=== PATIENT | female | born 1970 | race Asian ===

== ENCOUNTER 2018-10-21 03:50 | Emergency (ER) | payer OTHER ==
[~2018-10-21] VITALS: Ht 154.9 cm; Wt 49.9 kg
--- NOTE | 2018-10-21 03:50 | NUR ---
ED Nurse Note: SHANIKA SAHU [id number] C/O FALL 033. ABRASION TO LEFT FOREHEAD NOTED. PT STATES SHE FELL ASLEEP ON THE 3RD STEP OF STAIRS, FELL AND LANDED ON HER HEAD. DENIES LOC. AO4 VSS. REPORTS PAIN 10/10; CRYING.
--- NOTE | 2018-10-21 03:56 | Emergency Room Report ---
History of Present Illness General Chief Complaint: Multiple Trauma/Fall Source: Patient Present Illness HPI Patient presents with complaints of trauma to the left facial area This happened just prior to arrival patient had essentially falling asleep sitting down And after she fell asleep she fell forward hitting her head She had been sitting on the third step of a van Denies any visual changes denies any neck pain denies any focal weakness Pain to the left forehead area is 8 out of 10 Denies any other radiation Allergies: Coded Allergies: No Known Allergies (Unverified , 10/21/18) Patient History Past Medical History: see triage record Pertinent Family History: none Reviewed Nursing Documentation: PMH: Agreed; PSxH: Agreed Nursing Documentation-PMH Past Medical History: No Stated History Review of Systems All Other Systems: negative except mentioned in HPI Physical Exam Vital Signs Date Time Temp Pulse Resp B/P (MAP) Pulse Ox O2 Delivery O2 Flow Rate FiO2 10/21/18 03:40 97.9 68 18 144/80 98 Room Air Sp02 EP Interpretation: reviewed, normal General Appearance: mild distress - Tearful Head: other - Abrasions and 2 x 2 centimeter hematoma left forehead Eyes: bilateral eye PERRL ENT: normal pharynx Neck: full range of motion, supple Respiratory: lungs clear, no retraction, no accessory muscle use Cardiovascular #1: regular rate, rhythm Gastrointestinal: non tender, soft Genitourinary: no CVA tenderness Musculoskeletal: normal inspection Neurologic: alert, oriented x3, responsive Skin: other - Significant abrasforehead hematoma Lymphatic: no adenopathy Medical Decision Making Diagnostic Impression: Primary Impression: Head injury Additional Impressions: Hematoma Abrasion ER Course Given the patient's history and presentation given the size of the hematoma and the clinical presentation CT imaging was obtained There is some limitation in the study however no obvious acute intracranial hemorrhage Patient has improved significantly with her pain Is allowed to rest And will have close outpatient follow-up Rhythm Strip Diag. Results EP Interpretation: yes Rate: 60 Rhythm: NSR, no PVC's, no ectopy CT/MRI/US Diagnostic Results CT/MRI/US Diagnostic Results : Impression CT head: Significant hematoma however no obvious intracranial hemorrhage or other mass effect or abnormality Last Vital Signs Date Time Temp Pulse Resp B/P (MAP) Pulse Ox O2 Delivery O2 Flow Rate FiO2 10/21/18 03:40 97.9 68 18 144/80 98 Room Air Status: improved Disposition: HOME, SELF-CARE Condition: Improved Scripts Ibuprofen* (MOTRIN*) 600 Mg Tablet 600 MG ORAL Q8H PRN for For Pain, #20 TAB 0 Refills Prov: Topher Lee DO 10/21/18 Additional Instructions: Patient is provided with the discharge instructions notified to follow up with primary doctor in the next 2-3 days otherwise return to the er with any worsening symptoms. Please note that this report is being documented using MD2U technology. This can lead to erroneous entry secondary to incorrect interpretation by the dictating instrument. Topher Lee DO Oct 21, 2018 03:56
[2018-10-21] MEDS ORDERED: HYDROcodone/Acetamin 10/325 tab ORAL ONE (04:00)
--- NOTE | 2018-10-21 04:08 | NUR ---
ED Nurse Note: PT DOWN TO CT
[2018-10-21 04:09] VITALS: BP 144/80
--- NOTE | 2018-10-21 04:30 | NUR ---
ED Nurse Note: PT BACK FROM CT. REPORTS PAIN HAS SUBSIDED 0/10.
[2018-10-21] MEDS ORDERED: IBUPROFEN600 MG ORAL (05:46)
[2018-10-21] MEDS ORDERED: Bacitracin Oint UD TOPIC ONE (06:00)
[2018-10-21 06:03] VITALS: BP 132/76
[2018-10-21 06:05] VITALS: BP 132/76
--- NOTE | 2018-10-21 06:05 | NUR ---
ER DISCHARGE NOTE: Patient is cleared to be discharged per ERMD, pt is aox4, on room air, with stable vital signs. pt was given dc and prescription instructions, pt was able to verbalize understanding, pt id band removed without complications. pt is able to ambulate with steady gait. pt took all belongings. patient states mother will pick her up
--- NOTE | 2018-10-21 09:26 | Diagnostic Imaging Report ---
Indications: Trauma, Fell on concrete steps, hit left side of head, head pain, left periorbital swelling and forehead swelling Technique: Spiral acquisitions obtained through the brain. Angled axial and coronal 5 x 5 mm slices were reconstructed. Total dose length product 1372.49 mGycm. CTDI vol(s) 70.38 mGy. Dose reduction achieved using automated exposure control Comparison: None. Findings: There is a large left supraorbital scalp contusion/hematoma. No evidence of underlying calvarial fracture. No acute intercranial hemorrhage nor edema, mass effect, nor midline shift. Normal watt-white differentiation. Normal-sized ventricles and extra axial CSF spaces. Impression: Evidence of left supraorbital scalp soft tissue injury Negative for acute intracranial bleed or mass effect This agrees with the preliminary interpretation provided overnight by [facility]. The CT scanner at [facility] is accredited by the [employer] and the scans are performed using protocols designed to limit radiation exposure to as low as reasonably achievable to attain images of sufficient resolution adequate for diagnostic evaluation.
== END 2018-10-21 06:05 | disposition home or self-care (01) ==
LOC: EDBD 03:50 → EMR 04:01
DX: S00.83XA Contusion of other part of head, initial encounter (principal); S00.81XA Abrasion of other part of head, initial encounter; W19.XXXA Unspecified fall, initial encounter; Y92.89 Other specified places as the place of occurrence of the external cause
CPT/HCPCS: 70450; 99284